=== PATIENT | female | born 1975 | race Caucasian/White ===

== ENCOUNTER 2016-12-20 11:27 | Emergency (ER) | payer SELFPAY ==
[~2016-12-20] VITALS: Ht 157.5 cm; Wt 60.0 kg
[~2016-12-20 11:27] MED LIST: PROM25TA5 PO
[2016-12-20 11:29] VITALS: BP 133/80; PULSE 84; RESP 18; TEMP 98.6; O2SAT 100
--- NOTE | 2016-12-20 11:36 | PD ---
Physical Exam Time Seen by Provider: 11:35 Narrative 41yo F c/o toothache to R upper x couple days. Denies fever, vomiting. No facial edema or erythema noted in triage. Patient seen in triage. VS reviewed. Awaiting bed placement. Data Data Last Documented VS Vital Signs Date Time Temp Pulse Resp B/P Pulse Ox O2 Delivery O2 Flow Rate FiO2 12/20/16 11:29 98.6 84 18 133/80 100 Room Air MDM Supervised Visit with JEB: Anny Gill Dec 20, 2016 11:36
--- NOTE | 2016-12-20 12:06 | PD ---
HPI Chief Complaint: Oral / Dental Pain or Problem Time Seen by Provider: 12:06 Travel History International Travel<30 days: No Contact w/Intl Traveler<30days: No Traveled to known affect area: No History of Present Illness HPI 41-year-old female presents to the emergency department with several day history of right upper jaw pain and sensitivity to hot and cold. Patient has history of dental decay and missing #4 tooth. Patient denies fever, chills , difficulty swallowing, neck pain. Pain is currently an 8 out of 10. She is allergic to penicillin. PFSH Past Medical History Heart Rhythm Problems: No Cardiac Catheterization: No Cardiovascular Problems: Yes High Cholesterol: Yes Congestive Heart Failure: No Diabetes: No Diminished Hearing: No Triglycerides - High: Yes : 8 Para: 6 Miscarriage: 2 Tubal Ligation: Yes Past Surgical History Coronary Artery Bypass Graft: No Hysterectomy: No Other Surgery: Yes (L WRIST REPAIR/SUICIDE ATTEMPT) Social History Alcohol Use: No Tobacco Use: Yes (smokes a half a pack of cigarettes per day) Substance Use: No (CLEAN FOR 4 MONTH OFF OPIATES) Allergies-Medications (Allergen,Severity, Reaction): Coded Allergies: Penicillin (Verified Allergy, Unknown, 12/20/16) Reported Meds & Prescriptions Reported Meds & Active Scripts Active No Active Prescriptions or Reported Medications Review of Systems Except as stated in HPI: all other systems reviewed are Neg General / Constitutional: No: Fever Eyes: No: Visual changes HENT: Positive: Dental Difficulties, No: Headaches Cardiovascular: No: Chest Pain or Discomfort Respiratory: No: Shortness of Breath Gastrointestinal: No: Abdominal Pain Genitourinary: No: Dysuria Musculoskeletal: No: Pain Skin: No Rash Neurologic: No: Weakness Psychiatric: No: Depression Endocrine: No: Polydipsia Hematologic/Lymphatic: No: Easy Bruising Physical Exam Narrative GENERAL: Patient appears in [id number] distress. SKIN: Warm and dry. Normal color. Normal turgor. HEAD: Atraumatic. Normocephalic. No obvious swelling noted. EYES: Pupils equal and round. No scleral icterus. No injection or drainage. ENT: No nasal bleeding or discharge. Mucous membranes pink and moist. Patient is missing #4 tooth, with current pain and localized conjunctival swelling at the #3 tooth. There is no drainable abscess. NECK: Trachea midline. Pharynx is clear. Airway is patent. CARDIOVASCULAR: Regular rate and rhythm. RESPIRATORY: No accessory muscle use. Clear to auscultation. Breath sounds equal bilaterally. MUSCULOSKELETAL: Extremities without clubbing, cyanosis, or edema. No obvious deformities. NEUROLOGICAL: Awake and alert. No obvious cranial nerve deficits. Motor grossly within normal limits. Five out of 5 muscle strength in the arms and legs. Normal speech. PSYCHIATRIC: Appropriate mood and affect; insight and judgment normal. Data Data Last Documented VS Vital Signs Date Time Temp Pulse Resp B/P Pulse Ox O2 Delivery O2 Flow Rate FiO2 12/20/16 11:29 98.6 84 18 133/80 100 Room Air MDM Medical Decision Making Medical Screen Exam Complete: Yes Emergency Medical Condition: Yes Differential Diagnosis Dental pain. Dental abscess. Dental Caries. Narrative Course Patient is given her first dose of clindamycin 300 mg by mouth. Patient is given 800 mg ibuprofen as well as 1000 mg Tylenol by mouth now. Patient is given prescription for clindamycin 300 mg 3 times a day 10 days. Patient also given Magic mouthwash as directed #120 mL's with 1 refill. Patient to continue Tylenol and ibuprofen as needed. Patient given information regarding local dental resources. Diagnosis Primary Impression: Dental abscess Referrals: Dentist Patient Instructions: Dental Abscess (ED), General Instructions Additional Instructions: Patient is given her first dose of clindamycin 300 mg by mouth. Patient is given 800 mg ibuprofen as well as 1000 mg Tylenol by mouth now. Patient is given prescription for clindamycin 300 mg 3 times a day 10 days. Patient also given Magic mouthwash as directed #120 mL's with 1 refill. Patient to continue Tylenol and ibuprofen as needed. Patient given information regarding local dental resources. Med/Other Pt SpecificInfo: Prescription(s) given Scripts No Active Prescriptions or Reported Meds Disposition: 01 DISCHARGE HOME Condition: Stable Peter Tompkins Dec 20, 2016 12:06
[2016-12-20] MEDS ORDERED: ACETAMINOPHEN 500 MG CPLT PO ONE (12:15)
[2016-12-20] MEDS ORDERED: CLINDAMYCIN 150 MG CAP PO ONE (12:15)
[2016-12-20] MEDS ORDERED: IBUPROFEN 800 MG TAB PO ONE (12:15)
[2016-12-20] MEDS ORDERED: CLIN150 PO (12:18)
[2016-12-20] MEDS ORDERED: MAGICADU2 SWISH-SPIT (12:18)
== END 2016-12-20 12:40 | disposition home or self-care (01) ==
LOC: NEPK 11:27
DX: K04.7 Periapical abscess without sinus (principal); F17.210 Nicotine dependence, cigarettes, uncomplicated
CPT/HCPCS: 99284